=== PATIENT | female | born 2000 | race Caucasian/White ===

== ENCOUNTER 2024-07-30 22:39 | Outpatient (CLI) | payer OTHER ==
[~2024-07-30] VITALS: Ht 157.5 cm; Wt 112.9 kg
[2024-07-30 21:41] VITALS: BP 115/78
[2024-07-30] MEDS ORDERED: PRENATAL TABLE1 EAC1 PO (23:35)
[2024-07-30] MEDS ORDERED: MACROBID 100 M100 MG PO (23:35)
[2024-07-30 23:36] VITALS: BP 114/76
[2024-07-31 04:12] VITALS: BP 108/70
[2024-07-31 06:37] VITALS: BP 111/72; O2SAT 100
[2024-07-31 09:22] VITALS: BP 111/72
== END 2024-07-31 10:12 | disposition home or self-care (01) ==
LOC: OBS/DEL 22:39
PROVIDERS: ATTEND Obstetrics & Gynecology
DX: O26.893 Other specified pregnancy related conditions, third trimester (principal); Z3A.37 37 weeks gestation of pregnancy; R10.2 Pelvic and perineal pain

== ENCOUNTER 2024-08-05 15:55 | Inpatient (IN) | payer OTHER ==
[~2024-08-05] VITALS: Ht 157.5 cm; Wt 2.7 kg
[2024-08-05 12:59] LABS: HEMATOCRIT 36.5 % (36.0-45.00); HEMOGLOBIN 12.7 g/dL (12.0-15.00); MEAN CELL VOLUME 81.7 fL (80.00-100.00); MEAN CORPUSCULAR HEMOGLOBIN 28.3 pg (27.00-32.0); MEAN CORPUSCULAR HGB CONC 34.7 g/dl (32.0-36.0); PLATELET COUNT 233 K/uL (150-450); RED BLOOD COUNT 4.47 M/uL (4.00-6.00)
[2024-08-05 13:17] LABS: INR 0.94; PARTIAL THROMBOPLASTIN TIME 25.9 SECONDS (22.0-34.0); PROTHROMBIN TIME 10.3 SECONDS (9.0-11.5)
[2024-08-05 13:53] LABS: ALBUMIN 2.6 gm/dL (3.4-5.0); BILIRUBIN TOTAL 0.29 mg/dL (0.3-1.2); CALCIUM 8.8 mg/dL (8.5-10.1); CREATININE SERUM 0.52 mg/dL (0.55-1.02); GFR 142.54; GLOBULINA 3.6 G/DL (2.4-3.5); POTASSIUM 4.13 mEq/L (3.5-5.1); TOTAL PROTEIN 6.2 gm/dL (6.4-8.2)
[~2024-08-05 15:55] MED LIST: MACROBID 100 M100 MG PO; PRENATAL TABLE1 EAC1 PO
[2024-08-07 13:13] VITALS: BP 112/70
[2024-08-07] MEDS ORDERED: OXYTOCIN 10 UNITS/ML VIAL IV ONE (18:00)
[2024-08-07] MEDS ORDERED: CEFAZOLIN SODIUM 1,000 MG VIAL IV ONE (18:00)
[2024-08-07] MEDS ORDERED: ERYTHROMYCIN BASE OPHT 1GM EACH TUBE OP ONE (18:00)
[2024-08-07] MEDS ORDERED: MORPHINE SULFATE 4 MG/ML VIAL IV ONE ×2 (21:10→21:40)
[2024-08-07] MEDS ORDERED: OXYTOCIN 20 UNITS/1000ML RL PIGGYBAG IV ONE (22:00)
[2024-08-07] MEDS ORDERED: MORPHINE SULFATE 4 MG/ML VIAL IV PRN (22:00)
[2024-08-07] MEDS ORDERED: RINGERS SOLUTION,LACTATED 1,000 ML IV SCH (22:15)
[2024-08-07 22:30] VITALS: BP 105/63
[2024-08-08 01:14] VITALS: BP 108/67
[2024-08-08] MEDS ORDERED: OxyCODONE HCL 5 MG TABLET (ROXICODONE) PO PRN (06:00)
[2024-08-08] MEDS ORDERED: KETOROLAC TROMETHAMINE 10 MG TABLET PO PRN (06:00)
[2024-08-08] MEDS ORDERED: ACETAMINOPHEN 500 MG GEL..CAP PO PRN (06:00)
[2024-08-08 09:00] VITALS: BP 110/68
[2024-08-08] MEDS ORDERED: SIMETHICONE 125 MG CAPSULE PO SCH (09:00)
[2024-08-08 16:26] VITALS: BP 123/79
[2024-08-09 01:11] VITALS: BP 100/70
[2024-08-09 09:24] VITALS: BP 112/74
== END 2024-08-09 14:45 | disposition home or self-care (01) | DRG 788 ==
LOC: OB/GYN 08-07 10:42 → O/R 08-07 17:05 → OB/GYN 08-07 18:15
PROVIDERS: ADMIT Obstetrics & Gynecology; ATTEND Obstetrics & Gynecology
PROC: 4A1HXCZ Monitoring of Products of Conception, Cardiac Rate, External Approach (ICD-10-PCS; 2024-08-07)
PROC: 10D00Z1 Extraction of Products of Conception, Low, Open Approach (ICD-10-PCS; principal; 2024-08-07 18:15)
DX: O34.211 Maternal care for low transverse scar from previous cesarean delivery (principal); Z3A.39 39 weeks gestation of pregnancy; Z37.0 Single live birth; Z20.822 Contact with and (suspected) exposure to COVID-19